=== PATIENT | male | born 2000 | race Caucasian/White ===

== ENCOUNTER 2023-12-01 16:39 | Emergency (ER) | payer SELFPAY ==
[~2023-12-01] VITALS: Ht 193 cm; Wt 72.6 kg
[2023-12-01] MEDS ORDERED: Acetaminophen/Hydrocodone 5 MG/325 MG TABLET PO ONE (18:20)
[2023-12-01] MEDS ORDERED: CYCLOBENZAPRINE10 MG PO (19:33)
[2023-12-01] MEDS ORDERED: Cyclobenzaprine Hydrochlorid 10 MG TAB PO ONE (19:35)
== END 2023-12-01 19:46 | disposition home or self-care (01) ==
LOC: ED 16:39
DX: S46.911A Strain of unspecified muscle, fascia and tendon at shoulder and upper arm level, right arm, initial encounter (principal); W01.198A Fall on same level from slipping, tripping and stumbling with subsequent striking against other object, initial encounter; Y93.89 Activity, other specified; Y92.89 Other specified places as the place of occurrence of the external cause; Y99.8 Other external cause status